=== PATIENT | male | born 1985 | race Caucasian/White ===

== ENCOUNTER 2024-12-30 17:22 | Emergency (ER) | payer OTHER, SELFPAY ==
--- OUTSIDE RECORDS SUMMARY | 2001-06-13 10:00 | XMS_ITS | Continuity of Care Document ---
Author Organization [facility] Address [address] [place] [address] Phone Care Team Providers Care Communication Consultant Name Role Phone Francois Lawrence DO Unavailable Unavailable Advance Directives Directive Yes / No Effective Date File Name No Information Encounters Encounter Description Practice Location Reason(s) For Visit Diagnoses Date Provider Providers Copied on Encounter [facility], [address], [place], [place], [id number], [place] tel:[phone] [facility] No Information Melinda Vergara. [address] [place], [address], [place]. tel:[phone] Family History Family Member Type Diagnosis Age At Onset No Information Payers Payer name Insurance type Covered democrat ID Authoriza tion(s) No Information Social History Type Description Quantity Date Captured Comments Sex Male Smoking Status No Information Chief Complaint And Reason For Visit No Information Reason For Referral Reason For Referral No Information History Of Present Illness Encounter Date Complaint History Of Prese nt Illness No Information Functional Status Date Functional Assessmen t No Information Instructions Date Instruction Additional Infor mation No Information Assessments Type Assessment Date No Information Patient Care Teams Name Effective Dates (start - stop) Status Members No Information
--- OUTSIDE RECORDS SUMMARY | 2020-12-08 10:40 | XMS_ITS | Continuity of Care Document ---
Author Organization [facility] Address [address] [place] [address] Phone Care Team Providers Care Dental Technologist Name Role Phone James Bar MD Unavailable Unavailable Allergies, Adverse Reactions, Alerts Substance Reaction Status Criticality morphine Active No Information Medications Medication Instructions Dosage Effective Dates (start - stop) Status Comments tramadol 50 mg tablet take 1-2 tablet by oral route every 8 hours as needed - Active methocarbamol 750 mg tablet take 1 tablet by oral route 3 times every day 750 MG - Active Procedures Procedure Date MRI SPI CANAL&CNTS LMBR C-MATRL 021 OFFICE/OUTPATIENT VISIT EST OFFICE/OUTPATIENT VISIT EST OFFICE/OUTPATIENT VISIT EST OFFICE/OUTPATIENT VISIT EST OFFICE/OUTPATIENT VISIT EST OFFICE/OUTPATIENT VISIT EST OFFICE/OUTPATIENT VISIT EST OFFICE/OUTPATIENT VISIT EST OFFICE/OUTPATIENT VISIT NEW Advance Directives Directive Yes / No Effective Date File Name No Information Encounters Encounter Description Practice Location Reason(s) For Visit Diagnoses Date Provider Providers Copied on Encounter [facility], [address], [address], [place] tel:[phone] [facility] Other intervertebra l disc displacement, lumbar regionAcute bilateral low back pain with right-sided sciatica 1 Dipika Ramirez. [address] [place], [place], [id number]. tel:[phone] [facility], [address] [facility] [place], [address], [place] tel:[phone] [facility] Spinal stenosis, lumbar region without neurogenic claudicationO ther intervertebra l disc displacement, lumbar regionArthrod esis status 1 Dipika Ramirez. [address] [place], [place], [id number]. tel:[phone] [facility], [address], [address], [place] tel:[phone] [facility] Arthrodesis status 1 No Information Referring Provider: James Garcia, [address] [place], [address] . tel:[phone] [facility], [address], [address], [place] tel:[phone] [facility] No Information 1 Dipika Ramirez. [address] [place], [place], [id number]. tel:[phone] OFFICE/OUTPA TIENT VISIT EST [facility], [address], [address], [place] tel:[phone] [facility] Body mass index [BMI] 38.0-38.9, adultBilatera l low back pain without sciaticaArthr odesis status 1 Dipika Ramirez. [address] [place], [place], [id number]. tel:[phone] OFFICE/OUTPA TIENT VISIT EST [facility], [address], [address], [place] tel:[phone] [facility] Bilateral low back pain without sciaticaSpond ylosis of lumbosacral region without myelopathy or radiculopathy Arthrodesis status 0 Dipika Ramirez. [address] [place], [place], [id number]. tel:[phone] OFFICE/OUTPA TIENT VISIT EST [facility], [address] [facility] [address], [place], [address], tel:[phone] [facility] Body mass index (BMI) 37.0-37.9, adultSpondylo sis of lumbosacral region without myelopathy or radiculopathy Bilateral low back pain without sciaticaArthr odesis status Jun- 1-202 0 Dipika Ramirez. [address] [place], [place], [id number]. tel:[phone] Referring Provider: Christ Garcia, [address], [address] . tel:[phone] OFFICE/OUTPA TIENT VISIT [facility], [address] [place] [address], [place], [address], tel:[phone] [facility] Other chronic postprocedura l painBilateral low back pain without sciaticaSpond ylosis of lumbosacral region without myelopathy or radiculopathy Apr-2 3-201 9 Lopez Benavides. [address] [place] [address], [id number]. tel:[phone] OFFICE/OUTPA TIENT VISIT [facility], [address] [place] [address], [place], [address], [place] tel:[phone] [facility] Bilateral low back pain without sciaticaSpond ylosis of lumbosacral region without myelopathy or radiculopathy Other chronic postprocedura l painSacroilii tis Jun- 8-201 9 Lopez Benavides. [address] [place], [place], [address]. tel:[phone] [facility], [address] [place] [address], [place], [address], [place] tel:[phone] [facility] Spondylosis of lumbosacral region without myelopathy or radiculopathy Bilateral low back pain without sciatica Sep-2 4-201 8 Lopezrebekah Benavides. [address] [place] [address], [id number]. tel:[phone] [facility], [address], [address], [place] tel:[phone] [facility] [address] Spondylosis of lumbosacral region without myelopathy or radiculopathy 0 8 Lopez Kennedy. [address] [place], [place], [address]. tel:[phone] [facility], [address] [place] [address], [address], [place] tel:[phone] [facility] Spondylosis of lumbosacral region without myelopathy or radiculopathy Bilateral low back pain without sciatica 8 Lopez Kennedy. [address] [place], [place], [id number]. tel:[phone] [facility], [address] [place] [address], [address], [place] tel:[phone] [facility] Spondylosis of lumbosacral region without myelopathy or radiculopathy 8 Lopez Kennedy. [address] [place], [place], [address]. tel:[phone] [facility], [address] [place] [address], [address], [place] tel:[phone] [facility] Other chronic postprocedura l painSpondylos is of lumbosacral region without myelopathy or radiculopathy Bilateral low back pain without sciatica 0 7 Lopez Kennedy. [address] [place], [place], [id number]. tel:[phone] OFFICE/OUTPA TIENT VISIT EST [facility], [address] [place] [address], [address], [place] tel:[phone] [facility] Body mass index (BMI) 37.0-37.9, adultBilatera l low back pain without sciaticaSpond ylosis of lumbosacral region without myelopathy or radiculopathy Other chronic postprocedura l pain Nov- 7 Lopez Benavides. [address] [place], [place], [id number]. tel:[phone] OFFICE/OUTPA TIENT VISIT [facility], [address] [place] [address], [address], tel:[phone] [facility] Spondylosis of lumbar region without myelopathy or radiculopathy Bilateral low back pain without sciaticaOther chronic postprocedura l pain 2 6 Lopez Benavides. [address] [place], [place], [address]. tel:[phone] OFFICE/OUTPA TIENT VISIT [facility], [address] [place] [address], [address], tel:[phone] [facility] Bilateral low back pain without sciaticaSpond ylosis of lumbar region without myelopathy or radiculopathy 6 Lopez Benavides. [address] [place] [address], [id number]. tel:[phone] Referring Provider: Kennedy Marroquin, [address] [place] [address], [address] . tel:[phone] OFFICE/OUTPA TIENT VISIT [facility], [address] [place] [address], [address], tel:[phone] [facility] LOW BACK PAIN (chief complaint) DENIES RADIATING PAIN / NUMBNESS (chief complaint) NO RECENT MRI (chief complaint) NO RECENT THERAPY (chief complaint) BACK SX 2001 (chief complaint) Lumbago with sciatica, left sideLumbago with sciatica, right side Jul-0 6 Lopez Benavides. [address] [place], [place], [address]. tel:[phone] Family History Family Member Type Diagnosis Age At Onset Father Problem (finding) Alive and well Father Problem (finding) Alive and well Payers Payer name Insurance type Covered libertarian ID Kylie ford(sJarred Cervantes Open Access Plus E2 OT [id number] Social History Type Description Quantity Date Captured Comments Alcohol Use Details Unknown Caffeine Use Details Unknown Tobacco Use Status No Information Smoking Status No Information Sex Male Chief Complaint And Reason For Visit No Information Reason For Referral Reason For Referral No Information Plan Of Treatment Date Type Action Status Referral Ordered: INJ FORAMEN EPIDURAL L/S RT spine, lumbar Appointment date/timeframe: 12/08/2020 ordered Referral Ordered: INJ PARAVERT F JNT L/S 1 LEV Appointment date/timeframe: 09/20/2017 ordered Referral Ordered: DESTROY LUMB/SAC FACET JNT Appointment date/timeframe: 03/28/2017 ordered Referral Ordered: DESTROY LUMB/SAC FACET JNT Bilateral spine, lumbar ordered Referral Ordered: MRI SPI CANAL&CNTS LMBR C-MATRL spine, lumbar Appointment date/timeframe: 07/30/2015 ordered Nutrition Recommendation Nutrition / feed ing management completed History Of Present Illness Encounter Date Complaint History Of Prese nt Illness LOW BACK PAIN DENIES RADIATING PAIN / NUMBNESS NO RECENT MRI NO RECENT THERAPY BACK SX 2002 Functional Status Date Functional Assessmen t No Information Instructions Date Instruction Additional Infor mation Weight monitoring Related to Bod y mass index [BMI] 38.0-38.9, adult Weight monitoring Related to Bod y mass index (BMI) 37.0-37.9, adult Take medication as prescribed. R elated to Spondylosis of lumbosacral region without myelopathy or radiculopathy Activity as tolerated. Related t o Spondylosis of lumbosacral region without myelopathy or radiculopathy Avoid prolonged bed rest. Relate d to Spondylosis of lumbosacral region without myelopathy or radiculopathy Activity as tolerated. Related t o Spondylosis of lumbosacral region without myelopathy or radiculopathy Take medication as prescribed. R elated to Spondylosis of lumbosacral region without myelopathy or radiculopathy Avoid prolonged bed rest. Relate d to Spondylosis of lumbosacral region without myelopathy or radiculopathy Avoid prolonged bed rest. Relate d to Spondylosis of lumbosacral region without myelopathy or radiculopathy Activity as tolerated. Related t o Spondylosis of lumbosacral region without myelopathy or radiculopathy Giving encouragement to exercise Related to Body mass index (BMI) 37.0-37.9, adult Assessments Type Assessment Date assessment Other intervertebral disc displa cement, lumbar region assessment Acute bilateral low back pain wi th right-sided sciatica Patient Care Teams Name Effective Dates (start - stop) Status Members No Information
--- OUTSIDE RECORDS SUMMARY | 2020-12-08 10:40 | XMS_ITS | Continuity of Care Document ---
Author Organization [facility] Address [address] [place] [address] Phone Care Team Providers Care Coverer Name Role Phone James Bar MD Unavailable [...] Provider Providers Copied on Encounter [facility], [address], [address], [place] tel:[phone] [facility] Other intervertebra l disc displacement, lumbar regionAcute bilateral low back pain with right-sided sciatica 1 Dipika Ramirez. [address] [place], [place], [id number]. tel:[phone] [facility], [address] [address] [facility] [place], [address], [place] tel:[phone] [facility] Spinal stenosis, lumbar region without neurogenic claudicationO ther intervertebra l disc displacement, lumbar regionArthrod esis status 1 Dipika Ramirez. [address] [place], [place], [id number]. tel:[phone] [facility], [address], [address], [place] tel:[phone] [facility] Arthrodesis status 1 No Information Referring Provider: James Garcia, [address] [place], [address] . tel:[phone] [facility], [address], [address], [place] tel:[phone] [facility] No Information 1 Dipika Ramirez. [address] [place], [place], [address]. tel:[phone] OFFICE/OUTPA TIENT VISIT EST [facility], [address], [address], [place] tel:[phone] [facility] Body mass index [BMI] 38.0-38.9, adultBilatera l low back pain without sciaticaArthr odesis status 1 Dipika Ramirez. [address] [place], [place], [address]. tel:[phone] OFFICE/OUTPA TIENT VISIT EST [facility], [address], [address], [place] tel:[phone] [facility] Bilateral low back pain without sciaticaSpond ylosis of lumbosacral region without myelopathy or radiculopathy Arthrodesis status 0 Dipika Ramirez. [address] [place], [place], [address]. tel:[phone] OFFICE/OUTPA TIENT VISIT EST [facility], [address] [facility] [address], [place], [address], tel:[phone] [facility] Body mass index (BMI) 37.0-37.9, adultSpondylo sis of lumbosacral region without myelopathy or radiculopathy Bilateral low back pain without sciaticaArthr odesis status Jun- 1-202 0 Dipika Ramirez. [address] [place], [place], [id number]. tel:[phone] Referring Provider: Christ Garcia, [address], [address] . tel:[phone] OFFICE/OUTPA TIENT VISIT [facility], [address] [place] [address], [address], tel:[phone] [facility] Other chronic postprocedura l painBilateral low back pain without sciaticaSpond ylosis of lumbosacral region without myelopathy or radiculopathy Apr-2 3-201 9 Lopez Benavides. [address] [place] [address], [id number]. tel:[phone] OFFICE/OUTPA TIENT VISIT [facility], [address] [place] [address], [address], [place] tel:[phone] [facility] Bilateral low back pain without sciaticaSpond ylosis of lumbosacral region without myelopathy or radiculopathy Other chronic postprocedura l painSacroilii tis Jun- 8-201 9 Lopez Benavides. [address] [place], [place], [address]. tel:[phone] [facility], [address] [place] [address], [address], [place] tel:[phone] [facility] Spondylosis of lumbosacral region without myelopathy or radiculopathy Bilateral low back pain without sciatica Sep-2 4-201 8 Lopezrebekah Benavides. [address] [place] [address], [id number]. tel:[phone] [facility], [address], [address], [place] tel:[phone] [facility] [address] Spondylosis of lumbosacral region without myelopathy or radiculopathy 0 8 Lopez Kennedy. [address] [place], [place], [address]. tel:[phone] [facility], [address] [place] [address], [address], [place] tel:[phone] [facility] Spondylosis of lumbosacral region without myelopathy or radiculopathy Bilateral low back pain without sciatica 8 Lopez Kennedy. [address] [place], [place], [address]. tel:[phone] [facility], [address] [place] [address], [address], [place] tel:[phone] [facility] Spondylosis of lumbosacral region without myelopathy or radiculopathy 8 Lopez Kennedy. [address] [place], [place], [address]. tel:[phone] [facility], [address] [place] [address], [address], [place] tel:[phone] [facility] Other chronic postprocedura l painSpondylos is of lumbosacral region without myelopathy or radiculopathy Bilateral low back pain without sciatica 0 7 Lopez Kennedy. [address] [place], [place], [address]. tel:[phone] OFFICE/OUTPA TIENT VISIT EST [facility], [address] [place] [address], [address], [place] tel:[phone] [facility] Body mass index (BMI) 37.0-37.9, adultBilatera l low back pain without sciaticaSpond ylosis of lumbosacral region without myelopathy or radiculopathy Other chronic postprocedura l pain Nov- 7 Lopez Benavides. [address] [place], [place], [id number]. tel:[phone] OFFICE/OUTPA TIENT VISIT [facility], [address] [place] [address], [address], tel:[phone] [facility] Spondylosis of lumbar region without myelopathy or radiculopathy Bilateral low back pain without sciaticaOther chronic postprocedura l pain 2 6 Lopez Benavides. [address] [place], [place], [address]. tel:[phone] OFFICE/OUTPA TIENT VISIT [facility], [address] [place] [address], [address], tel:[phone] [facility] Bilateral low back pain without sciaticaSpond ylosis of lumbar region without myelopathy or radiculopathy 6 Lopez Benavides. [address] [place] [address], [id number]. tel:[phone] Referring Provider: Kennedy Marroquin, [address] [place] [address], [address] . tel:[phone] OFFICE/OUTPA TIENT VISIT [facility], [address] [place] [address], [address], tel:[phone] [facility] LOW BACK PAIN (chief complaint) DENIES RADIATING PAIN / NUMBNESS (chief complaint) NO RECENT MRI (chief complaint) NO RECENT THERAPY (chief complaint) BACK SX 2001 (chief complaint) Lumbago with sciatica, left sideLumbago with sciatica, right side Jul-0 6 Lopez Benavides. [address] [place], [place], [id number]. tel:[phone] Family History Family Member Type Diagnosis Age At Onset Father Problem (finding) Alive and well Father Problem (finding) Alive and well Payers Payer name Insurance type Covered constitution party ID Kylie ford(sJarred Cervantes Open Access Plus E2 OT [id number] Social History Type Description Quantity Date Captured [...]
--- NOTE | ~2024-12-30 | XR_ITS ---
EXAMINATION: XR chest 1V portable, 12/30/2024 17:40 CDT HISTORY: pain COMPARISON: No comparisons available. Technique: Single view. Findings: Mild pulmonary venous congestion. No pneumothorax. Mild cardiomegaly. Mediastinal and hilar contours are within normal limits. Postsurgical changes in the spine. Impression: Mild CHF Reviewed, dictated and finalized at location A. Impression: Mild CHF
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
[2024-12-30 17:30] VITALS: BP 135/96; PULSE 90; RESP 22; TEMP 36.6; O2SAT 96
--- NOTE | 2024-12-30 17:41 | ECG_ITS ---
Test Date: 2024-12-30 17:55:12 Measurements Intervals [place] Rate: 87 P: 41 ME: 182 QRS: -21 QRSD: 93 T: 35 QT: 365 QTc: 441 Interpretive Statements SINUS RHYTHM BORDERLINE LEFT AXIS DEVIATION [QRS AXIS < -20] nonspecific ST- T wave changes No previous ECG available for comparison Electronically Signed On 12-30-2024 18:52:42 CDT by Jose Simpson M.D.
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
[2024-12-30] MEDS: SODIUM CHLORIDE 0.9% IV 1,000 ML 999 ML IV CONT (17:50)
[2024-12-30 18:04] LABS: Hematocrit 47.1 % (42.0-52.0); Hemoglobin 16.1 g/dL (14.0-18.0); Immature Granulocyte Percent A 0.9 % (0-0.5); Lymphocytes Absolute Auto 5.96 K/mm3 (0.9-3.2); Mean Corpuscular HGB Conc 34.2 g/dl (32-36); Mean Corpuscular Hemoglobin 29.8 pg (26-34); Mean Corpuscular Volume 87.2 fl (80-100); Nucleated Red Blood Cells Absolute Auto 0.000 K/mm3 (0.0-0.012); Nucleated Red Blood Cells Perc 0.0 % (0.0-0.2); Platelet Count Result 228 k/mm3 (150-375); Red Blood Count 5.40 M/mm3 (4.6-6.20); White Blood Count 12.3 K/mm3 (4.5-10.0)
[2024-12-30 18:14] LABS: INR 1.1; Prothrombin Time 14.0 Seconds (11.1-14.7)
[2024-12-30 18:15] LABS: Partial Thromboplastin Time 21.9 Seconds (22.3-36.8)
[2024-12-30 18:15] LABS: Schistocytes None Seen
[2024-12-30 18:16] LABS: Alanine Aminotransferase 29 U/L (6-50); Albumin Level 4.4 g/dL (3.5-5.1); Alkaline Phosphatase 65 U/L (38-126); Anion Gap 13 mmol/L (4-12); Aspartate Amino Transferase 40 U/L (17-59); Bilirubin,Total 0.9 mg/dL (0.2-1.3); Blood Urea Nitrogen 16 mg/dL (9-20); Calcium 8.9 mg/dL (8.4-10.2); Carbon Dioxide 19 mmol/L (22-30); Chloride 106 mmol/L (98-107); Estimated CRCL calculation 106 ml/min; Estimated Glomerular Filt Rate > 60; Glucose 146 mg/dL (65-110); Potassium 3.8 mmol/L (3.4-5.0); Sodium 138 mmol/L (137-145); Total Protein 8.3 g/dL (6.3-8.2)
[2024-12-30 18:27] LABS: Troponin I < 0.012 ng/mL (0.000-0.034)
--- OUTSIDE RECORDS SUMMARY | 2024-12-30 18:50 | XMS_ITS | Clinical Summary ---
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 Social History Tobacco Use Types Packs/Day Years Used Date Smoking Tobacco: Never Assessed Sex and Gender Information Value Date Recorded Sex Assigned at Not on file Legal Sex Male 8:03 AM S[employer]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[employer] Gender Identity Not on file Sexual Orientation Not on file Obstetrics History Last Filed Vital Signs Vital Sign Reading Time Taken Comments Blood Pressure 132/88 12/28/2022 9:48 AM CDT Pulse 66 12/28/2022 9:48 AM CDT Temperature 36.8 C (98.2 F) 12/28/2022 9:48 AM CDT Respiratory Rate 16 12/28/2022 9:48 AM CDT Oxygen Saturation 98% 12/28/2022 9:48 AM CDT Inhaled Oxygen Concentration - - Weight 128.6 kg (283 lb 8 oz) 12/28/2022 9:48 AM CDT Height 177.8 cm (5' 10) 12/28/2022 9:48 AM CDT Body Mass Index 40.68 12/28/2022 9:48 AM CDT Plan of Treatment Health Maintenance Due Date Last Done Comments Depression Screening 1985 Varicella Vaccines (1 of 2 - 13+ 2-dose series) 1998 Hepatitis B Screening 11/24/2003 Regular Well Visit/Exam 18-64 11/24/2003 HPV Vaccines (1 - 3-dose SCD M series) 2012 DTaP/Tdap/Td Vaccine (2 - Td or Tdap) 08/15/2022 08/15/2012 Influenza Vaccine (#1) 2024 Hepatitis C Screening Completed 09/07/2012 Pneumococcal vaccine <65 Aged Out No longer eligible based on patient's age to complete this topic Procedures Procedure Name Priority Date/Time Associated Diagnosis Comments SERUM HEPATITIS C AB Routine 09/07/2012 7:50 AM CDT from Last 3 Months or Most Recently Relevant to Health Maintenance Results * Serum Hepatitis C ab (09/07/2012 7:50 AM CDT) HCV ab Negative NEG HISTORICAL RESULTS Serum 09/07/2012 7:50 AM CDT Narrative HISTORICAL RESULTS - 09/08/2012 4:29 AM CDT {Testing performed by: [place] [address]} Interpretive Data If confirmation is required, call Laboratory Customer Service to request sample to be sent to [facility] for Hepatitis C Virus (HCV) RNA Detection and Quantitation by Real-Time Reverse Hematologist Oncologist-PCR (RT-PCR). Current interpretive data was last revised on 2011 us Jazmín Shay MD LAB BLOOD ORDERABLES Final Result HISTORICAL RESULTS from Last 3 Months or Most Recently Relevant to Health Maintenance Insurance [facility] Care Teams Fur Finisher Seamstress Relationship Specialty Start Date End Date Unknown, Notinfile PCP - General 12/28/22
--- NOTE | 2024-12-30 19:21 | PC.NURSE ---
Assumed care of patien after receiving bedside report from SAGE Fowler @ 0929.
[2024-12-30 19:22] VITALS: BP 140/97; PULSE 97; RESP 20; O2SAT 96
[2024-12-30 20:00] VITALS: BP 150/98; PULSE 101; RESP 19; O2SAT 96
[2024-12-30 20:18] LABS: Add Urine Microscopic? YES; Appearance Urine Cloudy (Clear); Glucose Urine UA Negative (Negative); Leukocyte Esterase Ur Negative LEU/UL (Negative); Nitrate Urine Negative (Negative); Specific Grav Ur 1.040 (1.001-1.035)
[2024-12-30] MEDS: HYDROmorphone HCL INJ (*CRX) 1 MG/ML SYR 0.5 MG IV PUSH (20:37)
== END 2024-12-30 20:00 | disposition short-term general hospital (02) ==
PROVIDERS: Emergency Medicine; Emergency Provider Registered Nurse; PCP Physician Assistant
DX: S42.012A Anterior displaced fracture of sternal end of left clavicle, initial encounter for closed fracture (principal); S42.102A Fracture of unspecified part of scapula, left shoulder, initial encounter for closed fracture; S36.031A Moderate laceration of spleen, initial encounter; S36.899A Unspecified injury of other intra-abdominal organs, initial encounter; R31.9 Hematuria, unspecified; I50.9 Heart failure, unspecified; R94.31 Abnormal electrocardiogram [ECG] [EKG]; V28.49XA Other motorcycle driver injured in noncollision transport accident in traffic accident, initial encounter
CPT/HCPCS: 36415; 70450; 70486; 71045; 71260; 72125; 72131; 73030; 74177; 80053; 81001; 84484; 85025; 85610; 85730; 86850; 86900; 86901; 93005; 96361; 96374; 99285; J1171; J7030; L0140; Q9967